=== PATIENT | female | born 1990 | race Caucasian/White ===

== ENCOUNTER 2018-08-08 13:02 | Emergency (ER) | payer OTHER ==
[~2018-08-08] VITALS: Ht 182.9 cm; Wt 85.3 kg
[2018-08-08 13:04] VITALS: BP 125/67
--- NOTE | 2018-08-08 13:13 | NUR ---
PT MBULATED TO ER BED 05
--- NOTE | 2018-08-08 13:26 | NUR ---
[facility] DISCHARGE SINCE THIS MORNING WHEN SHE WIPES OR SHE HAS NOTICED IT IN HER UNDERWEAR. SPOKE WITH OBGYN AND THEY ADVISED HER TO COME IN. DENIES N/V/D; SKIN IS PINK/WARM/DRY; AAOX4 WITH EVEN AND STEADY GAIT; LUNGS CLEAR BL; HR EVEN AND REGULAR; PT DENIES ANY FEVER, CP, SOB, OR COUGH AT THIS TIME; PATIENT STATES PAIN OF 0/10 AT THIS TIME; VSS; PATIENT POSITIONED FOR COMFORT; HOB ELEVATED; BEDRAILS UP X2; BED DOWN. ER MD MADE AWARE OF PT STATUS.
[2018-08-08 13:59] LABS: BASOPHILS % (AUTO) 0.5 % (0.0-2.0); EOSINOPHILS % (AUTO) 0.3 % (0.0-4.0); HEMATOCRIT 41.7 % (36-48); HEMOGLOBIN 13.7 g/dL (12.0-16.0); LYMPHOCYTES # (AUTO) 1.8 K/uL (2.5-16.5); LYMPHOCYTES % (AUTO) 20.4 % (20.5-51.1); MEAN CORPUSCULAR HEMOGLOBIN 28 pg (27-31); MEAN CORPUSCULAR HGB CONC 33 g/dL (33-37); MEAN CORPUSCULAR VOLUME 84.2 fL (80-94); MONOCYTES # (AUTO) 0.6 K/uL (0.8-1.0); MONOCYTES % (AUTO) 6.3 % (1.7-9.3); NEUTROPHILS # (AUTO) 6.5 K/uL (1.8-7.7); NEUTROPHILS % (AUTO) 72.5 % (42.2-75.2); PLATELET COUNT (AUTO) 245 K/uL (140-450); RED BLOOD CELL COUNT(AUTO) 4.95 MIL/uL (4.20-5.40); WHITE BLOOD COUNT (AUTO) 8.9 K/uL (4.8-10.8)
--- NOTE | 2018-08-08 14:28 | NUR ---
Becky seth in [facility] - 08/08/18 at 1449 by LE PT TAKEN TO FLOOR
[2018-08-08 14:32] LABS: APPEARANCE,URINE CLEAR (CLEAR); BILIRUBIN,URINE NEGATIVE (NEGATIVE); BLOOD, URINE 1+ (NEGATIVE); COLOR,URINE YELLOW (YELLOW); LEUKOCYTE ESTERASE ,URINE NEGATIVE (NEGATIVE); NITRITE, URINE NEGATIVE (NEGATIVE); PH,URINE 5.5 (5.0-9.0); UGLUCOSE NEGATIVE (NEGATIVE)
[2018-08-08 14:39] LABS: RBC,URINE 0-5 (RARE) /HPF (0-5); WBC,URINE 0-5 (RARE) /HPF (0-5)
[2018-08-08 14:47] VITALS: BP 125/67
--- NOTE | 2018-08-08 14:48 | NUR ---
Patient discharged with v/s stable. Written and verbal after care instructions given and explained. Patient verbalized understanding. Ambulatory with steady gait. All questions addressed prior to discharge. Advised to follow up with PMD.
== END 2018-08-08 14:48 | disposition home or self-care (01) ==
LOC: MED 13:02
DX: O20.0 Threatened abortion (principal); Z3A.01 Less than 8 weeks gestation of pregnancy
CPT/HCPCS: 36415; 76817; 81001; 81025; 84702; 85025; 86900; 86901; 99284; Q0092

== ENCOUNTER 2018-10-24 13:53 | Emergency (ER) | payer OTHER ==
[~2018-10-24] VITALS: Ht 182.9 cm; Wt 83.7 kg
[2018-10-24 14:23] VITALS: BP 124/77
--- NOTE | 2018-10-24 14:43 | NUR ---
PATIENT PRESENTS TO ED WITH c/o generalized aches, headache, sore throat x today. DENIES N/V/D; SKIN IS PINK/WARM/DRY; AAOX4 WITH EVEN AND STEADY GAIT; LUNGS CLEAR BL; HR EVEN AND REGULAR; PATIENT STATES PAIN OF 9/10 AT THIS TIME; VSS; PATIENT POSITIONED FOR COMFORT; HOB ELEVATED; BEDRAILS UP X2; BED DOWN. ER MD MADE AWARE OF PT STATUS.
[2018-10-24] MEDS ORDERED: ALBUTEROL SULFATE/IPRATROPIU 3 ML SOL IH ONE (15:05)
[2018-10-24] MEDS ORDERED: hydrOXYzine HCL 25 MG TAB PO ONE (15:05)
--- NOTE | 2018-10-24 15:37 | NUR ---
[facility] THERAPY AND RESPIRATORY DRUG GIVEN ORDERED ENCOURAGED FOR INTERMITTENT DEEP BREATHING AND COUGH DURING THERAPY
[2018-10-24 15:44] LABS: APPEARANCE,URINE SL CLOUDY (CLEAR); BILIRUBIN,URINE 1+ (NEGATIVE); BLOOD, URINE TRACE-I (NEGATIVE); COLOR,URINE YELLOW (YELLOW); LEUKOCYTE ESTERASE ,URINE 1+ (NEGATIVE); NITRITE, URINE NEGATIVE (NEGATIVE); UGLUCOSE NEGATIVE (NEGATIVE)
[2018-10-24 15:54] LABS: RBC,URINE 3-10 (FEW) /HPF (0-5)
[2018-10-24 15:55] LABS: YEAST,URINE Moderate /HPF (None Seen)
[2018-10-24] MEDS ORDERED: cefTRIAXone 1,000 MG in LIDOCAINE 1% ***ER ONLY *** 2.1 ML IM ONE (17:05)
[2018-10-24] MEDS ORDERED: cefTRIAXone 1,000 MG VIAL ONE (17:23)
[2018-10-24] MEDS ORDERED: LIDOCAINE MPF 1% 5mL VIAL ONE (17:24)
--- NOTE | 2018-10-24 17:29 | NUR ---
notified pt's current b/p and hr----pt stated she has upcoming stitch bonding machine tender appt november 01 instructed to f/u with ob within a week. to see pt
[2018-10-24] MEDS ORDERED: cloNIDine 0.1 MG TAB PO ONE (17:30)
--- NOTE | 2018-10-24 17:48 | NUR ---
UPDATED VITALS REPORTED TO MD---PT DENIES HEADACHE, DIZZINESS, OR N/V
[2018-10-24 17:55] VITALS: BP 111/65
--- NOTE | 2018-10-24 17:56 | NUR ---
Patient discharged with v/s stable. Written and verbal after care instructions given and explained. Patient alert, oriented and verbalized understanding of instructions. Ambulatory with steady gait. All questions addressed prior to discharge. ID band removed. Patient advised to follow up with PMD. Rx of VANTIN/ PROMETHAZINE given. Patient educated on indication of medication including possible reaction and side effects. Opportunity to ask questions provided and answered.
[2018-10-25] MEDS ORDERED: LISINOPRIL 20 MG TAB PO ONE (09:00)
== END 2018-10-24 17:56 | disposition home or self-care (01) ==
LOC: MED 13:53
DX: O23.42 Unspecified infection of urinary tract in pregnancy, second trimester (principal); O26.892 Other specified pregnancy related conditions, second trimester; J02.9 Acute pharyngitis, unspecified; R51 Headache; Z3A.18 18 weeks gestation of pregnancy
CPT/HCPCS: 81001; 81025; 87086; 87804; 94640; 96372; 99283; J0696; J2001; J7620; 36415